=== PATIENT | male | born 1930 | race Caucasian/White ===

== ENCOUNTER 2017-08-07 02:11 | Inpatient (IN) | payer OTHER ==
[~2017-08-07] VITALS: Ht 160 cm; Wt 68.0 kg
[~2017-08-07 02:11] MED LIST: ACETAMINOPHN-T1 EACH PO; ADVAIR 250/501 DISK IH; AMLODIPINE-BEN1 EAC4 PO; APRESOLINE25 MG PO; ASPIR 8181 M1 PO; ASPIRIN81 M2 PO; AXID PO; AXID150 MG PO; AZOR 5/40 MG1 TABLET PO; CARBIDOPA/LEVO1 EACH PO; CIPRO500 MG PO; CIPROFLOXACIN500 M1 PO; Colace PO; DUONEB 2.5-0.5 M3 ML AEROSOL; DUONEB 2.5-0.5 M3 ML IH; Dulcolax PR; DuoNeb IH; HYDRALAZINE HCL25 MG PO; LEVAQUIN500 MG PO; LO-DOSE ASPIRIN81 M2 PO; LOPERAMIDE1 MG/5 ML PO; LOTREL 5/401 CAPSULE PO; METRONIDAZOLE500 MG PO; NORVASC5 MG PO; OMEPRAZOLE20 M2 PO; OMEPRAZOLE20 MG PO; PREDNISONE10 MG PO; PREDNISONE20 MG PO; PRILOSEC20 MG PO; REQUIP0.25 MG PO; SYMBICORT60 INHALA1 IH; TEKTURNA300 MG PO; TYLENOL REGULA325 MG PO; ULTRACET1 TABLET PO; UNKNOWN MED; VITAMIN D-3 401 EACH PO; VITAMIN D2400 UNIT PO; VITAMIN D31000 UNIT PO; VITAMIN D400 UNI1 PO; Vitamin D PO; WELCHOL625 MG PO
[2017-08-07 02:50] LABS: EOSINOPHIL (%) 1.2 % (0-5); EOSINOPHIL COUNT 0.1 K/uL (0-0.3); HEMATOCRIT 31.9 % (38.0-50.0); IMMATURE GRANULOCYTE (%) 0.9 % (0.0-0.7); IMMATURE GRANULOCYTE COUNT 0.1 K/uL; INSTRUMENT ABS NEUTROPHIL CT 4.5 K/uL; LYMPHOCYTE COUNT 1.1 K/uL (1.0-2.8); MCH 28.8 PG (29.0-34.0); MCHC 30.4 G/DL (30.0-36.0); MCV 94.7 FL (86-99); MEAN PLAT.VOLUME 8.7 uM^3 (9.0-12.4); MONOCYTE (%) 12.4 % (3-12); MONOCYTE COUNT 0.8 K/uL (0-0.8); NEUTROPHIL (%) 68.4 % (45-76); NEUTROPHIL COUNT 4.5 K/uL (1.8-6.4); PLATELET COUNT 256 K/uL (156-360); RBC DIS.WIDTH-CV 15.6 % (11.8-14.6); RBC DIS.WIDTH-SD 53.6 % (39-53); RED BLOOD COUNT 3.37 M/uL (4.00-5.50); WHITE BLOOD COUNT 6.6 K/uL (4.1-10.2)
[2017-08-07 03:08] LABS: CHLORIDE 112 mEq/L (99-109); POTASSIUM 5.1 mEq/L (3.7-5.4); SODIUM 141 mEq/L (136-147)
[2017-08-07 03:10] LABS: GLUCOSE 87 mg/dL (70-99)
[2017-08-07 03:11] LABS: ANION GAP 9 MEQ/L (2-14)
[2017-08-07 03:12] LABS: TOTAL BILIRUBIN 0.2 mg/dL (0.0-1.0)
[2017-08-07 03:13] LABS: ALKALINE PHOSPHATASE 72 IU/L (3-129)
[2017-08-07 03:14] LABS: GFR ESTIMATE (CALCULATED) 51 mL/min/
[2017-08-07 03:15] LABS: UREA NITROGEN (BUN) 45 mg/dL (9-23)
[2017-08-07 03:28] LABS: TROP-I INTERPRETATION NEGATIVE; TROPONIN-I 0.01 ng/mL (0.0-0.30)
[2017-08-07] MEDS ORDERED: ADVAIR 250/501 DISK IH (09:23)
[2017-08-07 14:52] VITALS: BP 165/79
[2017-08-07 23:20] VITALS: BP 138/78
[2017-08-08 06:06] LABS: MCH 29.6 PG (29.0-34.0); MCHC 31.7 G/DL (30.0-36.0); MCV 93.5 FL (86-99); MEAN PLAT.VOLUME 9.4 uM^3 (9.0-12.4); PLATELET COUNT 272 K/uL (156-360); RBC DIS.WIDTH-CV 15.8 % (11.8-14.6); RED BLOOD COUNT 3.21 M/uL (4.00-5.50); WHITE BLOOD COUNT 7.5 K/uL (4.1-10.2)
[2017-08-08 06:37] LABS: ALKALINE PHOSPHATASE 58 IU/L (3-129); ANION GAP 8 MEQ/L (2-14); CHLORIDE 111 MEQ/L (99-109); GFR ESTIMATE (CALCULATED) 51 mL/min/; POTASSIUM 5.5 MEQ/L (3.7-5.4); SAMPLE HEMOLYSIS CHECK 0; SAMPLE ICTERIC CHECK 0; SAMPLE LIPEMIA CHECK 0; SODIUM 139 MEQ/L (136-147); TOTAL BILIRUBIN 0.4 MG/DL (0.0-1.0); UREA NITROGEN (BUN) 40 mg/dL (9-23)
[2017-08-08 06:44] LABS: GLUCOSE 131 mg/dL (70-99)
[2017-08-08 09:00] VITALS: BP 137/80
[2017-08-08 16:31] VITALS: BP 137/58
[2017-08-08 20:20] VITALS: BP 103/54
[2017-08-09 00:38] VITALS: BP 123/64
[2017-08-09 04:11] VITALS: BP 134/70
[2017-08-09 06:36] LABS: EOSINOPHIL (%) 0 % (0-5); HEMATOCRIT 29.4 % (38.0-50.0); IMMATURE GRANULOCYTE (%) 1.2 % (0.0-0.7); IMMATURE GRANULOCYTE COUNT 0.1 K/uL; INSTRUMENT ABS NEUTROPHIL CT 5.7 K/uL; LYMPHOCYTE COUNT 0.5 K/uL (1.0-2.8); MCH 28.8 PG (29.0-34.0); MCHC 31.3 G/DL (30.0-36.0); MCV 92.2 FL (86-99); MEAN PLAT.VOLUME 9.1 uM^3 (9.0-12.4); MONOCYTE (%) 5.3 % (3-12); MONOCYTE COUNT 0.4 K/uL (0-0.8); NEUTROPHIL (%) 85.9 % (45-76); NEUTROPHIL COUNT 5.7 K/uL (1.8-6.4); PLATELET COUNT 265 K/uL (156-360); RBC DIS.WIDTH-CV 15.4 % (11.8-14.6); RBC DIS.WIDTH-SD 51.8 % (39-53); RED BLOOD COUNT 3.19 M/uL (4.00-5.50); WHITE BLOOD COUNT 6.6 K/uL (4.1-10.2)
[2017-08-09 06:58] LABS: ANION GAP 9 MEQ/L (2-14); CHLORIDE 108 MEQ/L (99-109); GFR ESTIMATE (CALCULATED) 47 mL/min/; GLUCOSE 128 mg/dL (70-99); POTASSIUM 5.2 MEQ/L (3.7-5.4); SAMPLE HEMOLYSIS CHECK 0; SAMPLE ICTERIC CHECK 0; SAMPLE LIPEMIA CHECK 0; SODIUM 137 MEQ/L (136-147); UREA NITROGEN (BUN) 46 mg/dL (9-23)
[2017-08-09 07:22] VITALS: BP 145/70
[2017-08-09 12:10] VITALS: BP 134/65
[2017-08-09 15:25] VITALS: BP 134/71
[2017-08-10 00:48] VITALS: BP 133/62
[2017-08-10 06:39] LABS: EOSINOPHIL (%) 0 % (0-5); HEMATOCRIT 30.2 % (38.0-50.0); IMMATURE GRANULOCYTE (%) 2.6 % (0.0-0.7); IMMATURE GRANULOCYTE COUNT 0.2 K/uL; INSTRUMENT ABS NEUTROPHIL CT 6.8 K/uL; LYMPHOCYTE COUNT 0.4 K/uL (1.0-2.8); MCH 29.8 PG (29.0-34.0); MCHC 32.1 G/DL (30.0-36.0); MCV 92.6 FL (86-99); MEAN PLAT.VOLUME 9.4 uM^3 (9.0-12.4); MONOCYTE (%) 7.4 % (3-12); MONOCYTE COUNT 0.6 K/uL (0-0.8); NEUTROPHIL (%) 84.6 % (45-76); NEUTROPHIL COUNT 6.8 K/uL (1.8-6.4); PLATELET COUNT 278 K/uL (156-360); RBC DIS.WIDTH-CV 15.4 % (11.8-14.6); RBC DIS.WIDTH-SD 52.2 % (39-53); RED BLOOD COUNT 3.26 M/uL (4.00-5.50)
[2017-08-10 07:07] LABS: GFR ESTIMATE (CALCULATED) 44 mL/min/; GLUCOSE 110 mg/dL (70-99); POTASSIUM 5.2 MEQ/L (3.7-5.4); SODIUM 138 MEQ/L (136-147); UREA NITROGEN (BUN) 56 mg/dL (9-23)
[2017-08-10 07:08] LABS: ANION GAP 10 MEQ/L (2-14); CHLORIDE 109 MEQ/L (99-109); SAMPLE HEMOLYSIS CHECK 0; SAMPLE ICTERIC CHECK 0; SAMPLE LIPEMIA CHECK 0
[2017-08-10 07:36] VITALS: BP 134/78
[2017-08-10 15:17] VITALS: BP 108/55
[2017-08-10 15:32] VITALS: BP 120/58
[2017-08-10 19:50] VITALS: BP 127/70
[2017-08-10 23:57] VITALS: BP 117/57
[2017-08-11 06:46] LABS: EOSINOPHIL (%) 0 % (0-5); HEMATOCRIT 30.2 % (38.0-50.0); IMMATURE GRANULOCYTE (%) 2.9 % (0.0-0.7); IMMATURE GRANULOCYTE COUNT 0.2 K/uL; INSTRUMENT ABS NEUTROPHIL CT 6.4 K/uL; LYMPHOCYTE COUNT 0.3 K/uL (1.0-2.8); MCH 30.2 PG (29.0-34.0); MCHC 32.5 G/DL (30.0-36.0); MCV 93.2 FL (86-99); MEAN PLAT.VOLUME 9.4 uM^3 (9.0-12.4); MONOCYTE (%) 5.9 % (3-12); MONOCYTE COUNT 0.4 K/uL (0-0.8); NEUTROPHIL (%) 86.7 % (45-76); NEUTROPHIL COUNT 6.4 K/uL (1.8-6.4); PLATELET COUNT 258 K/uL (156-360); RBC DIS.WIDTH-CV 15.4 % (11.8-14.6); RBC DIS.WIDTH-SD 52.7 % (39-53); RED BLOOD COUNT 3.24 M/uL (4.00-5.50); WHITE BLOOD COUNT 7.3 K/uL (4.1-10.2)
[2017-08-11 07:21] LABS: ANION GAP 10 MEQ/L (2-14); CHLORIDE 109 MEQ/L (99-109); GFR ESTIMATE (CALCULATED) 36 mL/min/; GLUCOSE 111 mg/dL (70-99); POTASSIUM 5.7 MEQ/L (3.7-5.4); SAMPLE HEMOLYSIS CHECK 1; SAMPLE ICTERIC CHECK 0; SAMPLE LIPEMIA CHECK 0; SODIUM 137 MEQ/L (136-147); UREA NITROGEN (BUN) 68 mg/dL (9-23)
[2017-08-11 08:08] VITALS: BP 104/52
[2017-08-11 08:26] VITALS: BP 122/61
[2017-08-11 15:32] VITALS: BP 129/55
[2017-08-11 23:41] VITALS: BP 127/63
[2017-08-12 06:27] LABS: EOSINOPHIL (%) 0 % (0-5); IMMATURE GRANULOCYTE (%) 2.1 % (0.0-0.7); IMMATURE GRANULOCYTE COUNT 0.2 K/uL; INSTRUMENT ABS NEUTROPHIL CT 7.6 K/uL; LYMPHOCYTE COUNT 0.6 K/uL (1.0-2.8); MCH 28.6 PG (29.0-34.0); MCHC 30.3 G/DL (30.0-36.0); MCV 94.3 FL (86-99); MEAN PLAT.VOLUME 9.2 uM^3 (9.0-12.4); MONOCYTE (%) 14.8 % (3-12); MONOCYTE COUNT 1.5 K/uL (0-0.8); NEUTROPHIL (%) 76.4 % (45-76); NEUTROPHIL COUNT 7.6 K/uL (1.8-6.4); PLATELET COUNT 282 K/uL (156-360); RBC DIS.WIDTH-CV 15.4 % (11.8-14.6); RBC DIS.WIDTH-SD 53.2 % (39-53); WHITE BLOOD COUNT 9.9 K/uL (4.1-10.2)
[2017-08-12 07:01] LABS: ANION GAP 9 MEQ/L (2-14); CHLORIDE 110 MEQ/L (99-109); GFR ESTIMATE (CALCULATED) 36 mL/min/; POTASSIUM 4.8 MEQ/L (3.7-5.4); SAMPLE HEMOLYSIS CHECK 0; SAMPLE ICTERIC CHECK 0; SAMPLE LIPEMIA CHECK 0; SODIUM 142 MEQ/L (136-147); UREA NITROGEN (BUN) 73 mg/dL (9-23)
[2017-08-12 07:08] LABS: GLUCOSE 80 mg/dL (70-99)
[2017-08-12 07:52] VITALS: BP 120/58
[2017-08-12] MEDS ORDERED: CLEOCIN300 MG PO (09:00)
[2017-08-12] MEDS ORDERED: DELTASONE20 M1 PO (09:01)
== END 2017-08-12 12:17 | DRG 153 ==
LOC: EME 02:11 → EDOF 11:00 → 5EAST 11:00 → ENRESERV 11:17 → 5EAST 14:22
PROVIDERS: Emergency Medicine; Family Medicine
DX: J39.0 Retropharyngeal and parapharyngeal abscess (principal); J44.1 Chronic obstructive pulmonary disease with (acute) exacerbation; R13.12 Dysphagia, oropharyngeal phase; E87.5 Hyperkalemia; I12.9 Hypertensive chronic kidney disease with stage 1 through stage 4 chronic kidney disease, or unspecified chronic kidney disease; N18.2 Chronic kidney disease, stage 2 (mild); D50.9 Iron deficiency anemia, unspecified; G20 Parkinson's disease; E55.9 Vitamin D deficiency, unspecified; E78.1 Pure hyperglyceridemia; E78.5 Hyperlipidemia, unspecified; K21.9 Gastro-esophageal reflux disease without esophagitis; M19.90 Unspecified osteoarthritis, unspecified site; E66.9 Obesity, unspecified; G25.81 Restless legs syndrome; Z96.651 Presence of right artificial knee joint; Z85.46 Personal history of malignant neoplasm of prostate
CPT/HCPCS: 70360; 70490; 70491; 71020; 71250; 80048; 80053; 83880; 84484; 85025; 85027; 87040; 90686; 92610 GN; 93005; 94640; 94640 76; 97530 GO; 99202; 99281; 99285; C9113; J0696; J1100; J2543; J2930; J7040; J7050; J7512; J7644

== ENCOUNTER 2018-02-06 22:29 | Inpatient (IN) | payer OTHER ==
[~2018-02-06] VITALS: Ht 160 cm; Wt 76.5 kg
[~2018-02-06 22:29] MED LIST changes: +CLEOCIN300 MG PO; +DELTASONE20 M1 PO
[2018-02-06 23:05] LABS: HEMATOCRIT 29.6 % (38.0-50.0); HEMOGLOBIN 8.9 G/DL (12.5-16.6); MCHC 30.1 G/DL (30.0-36.0); MCV 86.5 FL (86-99); NRBC (%) 0.2 /100 WBC (0-0); PLATELET COUNT 364 K/uL (156-360); RBC DIS.WIDTH-CV 17.1 % (11.8-14.6); RBC DIS.WIDTH-SD 53.4 % (39-53); RED BLOOD COUNT 3.42 M/uL (4.00-5.50); WHITE BLOOD COUNT 9.6 K/uL (4.1-10.2)
[2018-02-06 23:13] LABS: CHLORIDE 107 mEq/L (99-109); SODIUM 141 mEq/L (136-147)
[2018-02-06 23:15] LABS: GLUCOSE 118 mg/dL (70-99)
[2018-02-06 23:18] LABS: CREATININE 1.9 mg/dL (0.6-1.3); GFR ESTIMATE (CALCULATED) 36 mL/min/ (58.99-99999)
[2018-02-06 23:19] LABS: UREA NITROGEN (BUN) 83 mg/dL (9-23)
[2018-02-06 23:21] LABS: POTASSIUM 6.7 mEq/L (3.7-5.4)
[2018-02-06 23:25] LABS: TROP-I INTERPRETATION NEGATIVE; TROPONIN-I 0.02 ng/mL (0.0-0.30)
[2018-02-07 00:58] LABS: CHLORIDE 108 mEq/L (99-109); SODIUM 141 mEq/L (136-147)
[2018-02-07 01:00] LABS: GLUCOSE 114 mg/dL (70-99)
[2018-02-07] MEDS ORDERED: PEPCID20 MG PO (01:01)
[2018-02-07] MEDS ORDERED: CLARITIN,ALAVAR10 MG PO (01:02)
[2018-02-07] MEDS ORDERED: DELTASONE20 M1 PO (01:02)
[2018-02-07 01:04] LABS: CREATININE 1.9 mg/dL (0.6-1.3); GFR ESTIMATE (CALCULATED) 36 mL/min/ (58.99-99999)
[2018-02-07 01:05] LABS: POTASSIUM 6.9 mEq/L (3.7-5.4); UREA NITROGEN (BUN) 83 mg/dL (9-23)
[2018-02-07 07:19] LABS: HEMOGLOBIN 8.5 G/DL (12.5-16.6); MCH 26.3 PG (29.0-34.0); MCHC 30.4 G/DL (30.0-36.0); MCV 86.7 FL (86-99); NRBC (%) 0.2 /100 WBC (0-0); PLATELET COUNT 301 K/uL (156-360); RBC DIS.WIDTH-CV 17.2 % (11.8-14.6); RBC DIS.WIDTH-SD 53.2 % (39-53); RED BLOOD COUNT 3.23 M/uL (4.00-5.50); WHITE BLOOD COUNT 8.2 K/uL (4.1-10.2)
[2018-02-07 07:28] LABS: CHLORIDE 107 mEq/L (99-109); SODIUM 141 mEq/L (136-147)
[2018-02-07 07:30] LABS: GLUCOSE 94 mg/dL (70-99)
[2018-02-07 07:34] LABS: CREATININE 1.9 mg/dL (0.6-1.3); GFR ESTIMATE (CALCULATED) 36 mL/min/ (58.99-99999)
[2018-02-07 07:35] LABS: UREA NITROGEN (BUN) 82 mg/dL (9-23)
[2018-02-07 07:40] LABS: TROP-I INTERPRETATION NEGATIVE; TROPONIN-I < 0.01 ng/mL (0.0-0.30)
[2018-02-07 15:13] LABS: TROP-I INTERPRETATION NEGATIVE; TROPONIN-I 0.02 ng/mL (0.0-0.30)
[2018-02-07 18:58] VITALS: BP 114/66
[2018-02-07 23:54] VITALS: BP 117/60
[2018-02-08 04:37] VITALS: BP 138/69
[2018-02-08 05:25] LABS: BASOPHIL (%) 0.1 % (0-1); EOSINOPHIL (%) 0 % (0-5); HEMOGLOBIN 8.4 G/DL (12.5-16.6); IMMATURE GRANULOCYTE (%) 1.2 % (0.0-0.7); LYMPHOCYTE (%) 4.3 % (15-42); LYMPHOCYTE COUNT 0.4 K/uL (1.0-2.8); MCH 25.8 PG (29.0-34.0); MCV 85.9 FL (86-99); MONOCYTE (%) 8.2 % (3-12); MONOCYTE COUNT 0.8 K/uL (0-0.8); NEUTROPHIL (%) 86.2 % (45-76); NEUTROPHIL COUNT 8.2 K/uL (1.8-6.4); NRBC (%) 0.4 /100 WBC (0-0); PLATELET COUNT 322 K/uL (156-360); RBC DIS.WIDTH-CV 17.3 % (11.8-14.6); RBC DIS.WIDTH-SD 53.6 % (39-53); RED BLOOD COUNT 3.26 M/uL (4.00-5.50); WHITE BLOOD COUNT 9.5 K/uL (4.1-10.2)
[2018-02-08 05:53] LABS: CHLORIDE 103 MEQ/L (99-109); GFR ESTIMATE (CALCULATED) 34 mL/min/ (58.99-99999); GLUCOSE 110 mg/dL (70-99); SODIUM 143 MEQ/L (136-147); UREA NITROGEN (BUN) 72 mg/dL (9-23)
[2018-02-08 05:54] LABS: POTASSIUM 4.7 MEQ/L (3.7-5.4)
[2018-02-08 09:00] VITALS: BP 152/68
[2018-02-08 12:00] VITALS: BP 107/58
[2018-02-08 23:55] VITALS: BP 116/56
[2018-02-09] VITALS (7 sets, daily range): BP systolic 100–127; BP diastolic 56–65
[2018-02-09 05:43] LABS: BASOPHIL (%) 0 % (0-1); EOSINOPHIL (%) 0 % (0-5); HEMATOCRIT 27.3 % (38.0-50.0); HEMOGLOBIN 8.2 G/DL (12.5-16.6); LYMPHOCYTE (%) 7.2 % (15-42); LYMPHOCYTE COUNT 0.6 K/uL (1.0-2.8); MCH 25.6 PG (29.0-34.0); MCV 85.3 FL (86-99); MONOCYTE (%) 10.9 % (3-12); MONOCYTE COUNT 0.9 K/uL (0-0.8); NEUTROPHIL (%) 79.9 % (45-76); NEUTROPHIL COUNT 6.3 K/uL (1.8-6.4); RBC DIS.WIDTH-CV 17.2 % (11.8-14.6); RBC DIS.WIDTH-SD 52.8 % (39-53); WHITE BLOOD COUNT 7.9 K/uL (4.1-10.2)
[2018-02-09 05:48] LABS: CHLORIDE 102 MEQ/L (99-109); CREATININE 1.8 MG/DL (0.6-1.3); GFR ESTIMATE (CALCULATED) 38 mL/min/ (58.99-99999); GLUCOSE 107 mg/dL (70-99); POTASSIUM 4.5 MEQ/L (3.7-5.4); SODIUM 141 MEQ/L (136-147); UREA NITROGEN (BUN) 70 mg/dL (9-23)
[2018-02-09 06:01] LABS: PLAT.SUFFICIENCY ADEQUATE; PLATELET COUNT 290 K/uL (156-360)
[2018-02-10 02:40] VITALS: BP 140/64
[2018-02-10 06:42] LABS: BASOPHIL (%) 0.1 % (0-1); EOSINOPHIL (%) 0 % (0-5); HEMATOCRIT 28.9 % (38.0-50.0); HEMOGLOBIN 8.7 G/DL (12.5-16.6); LYMPHOCYTE COUNT 0.8 K/uL (1.0-2.8); MCH 25.6 PG (29.0-34.0); MCHC 30.1 G/DL (30.0-36.0); MONOCYTE (%) 12.5 % (3-12); MONOCYTE COUNT 1.2 K/uL (0-0.8); NEUTROPHIL (%) 78.4 % (45-76); NEUTROPHIL COUNT 7.4 K/uL (1.8-6.4); PLATELET COUNT 262 K/uL (156-360); RBC DIS.WIDTH-CV 17.2 % (11.8-14.6); RBC DIS.WIDTH-SD 52.5 % (39-53); WHITE BLOOD COUNT 9.4 K/uL (4.1-10.2)
[2018-02-10 07:29] LABS: CHLORIDE 99 MEQ/L (99-109); GFR ESTIMATE (CALCULATED) 34 mL/min/ (58.99-99999); GLUCOSE 92 mg/dL (70-99); POTASSIUM 4.3 MEQ/L (3.7-5.4); SODIUM 141 MEQ/L (136-147); UREA NITROGEN (BUN) 70 mg/dL (9-23)
[2018-02-10 07:44] VITALS: BP 129/72
[2018-02-10 11:20] VITALS: BP 107/55
[2018-02-10 15:33] VITALS: BP 115/55
[2018-02-10] MEDS ORDERED: CEFDINIR300 MG PO (15:50)
[2018-02-10] MEDS ORDERED: PREDNISONE20 MG PO (15:51)
[2018-02-10] MEDS ORDERED: LASIX20 MG PO (15:52)
[2018-02-10 19:47] VITALS: BP 130/63
== END 2018-02-10 20:23 | DRG 191 ==
LOC: EME → EDBD 22:29 → EDOF 02-07 01:00 → 4EAST 02-07 01:00 → ENRESERV 02-07 01:21 → 4EAST 02-07 17:58 → ENPENDDIS 02-10 → 4EAST 02-10 20:23
PROVIDERS: Emergency Medicine; Family Medicine
DX: J44.1 Chronic obstructive pulmonary disease with (acute) exacerbation (principal); N17.9 Acute kidney failure, unspecified; I50.9 Heart failure, unspecified; D64.9 Anemia, unspecified; E55.9 Vitamin D deficiency, unspecified; I13.0 Hypertensive heart and chronic kidney disease with heart failure and stage 1 through stage 4 chronic kidney disease, or unspecified chronic kidney disease; G20 Parkinson's disease; E87.5 Hyperkalemia; E66.9 Obesity, unspecified; R53.1 Weakness; R09.02 Hypoxemia; E78.5 Hyperlipidemia, unspecified; K21.9 Gastro-esophageal reflux disease without esophagitis; Z96.651 Presence of right artificial knee joint; N18.3 Chronic kidney disease, stage 3 (moderate); Z79.82 Long term (current) use of aspirin; Z79.899 Other long term (current) drug therapy; Z68.31 Body mass index [BMI] 31.0-31.9, adult; Z85.46 Personal history of malignant neoplasm of prostate
CPT/HCPCS: 71046; 80048; 80048 91; 82948; 83880; 84484; 85025; 85027; 93005; 93306; 94640; 94640 76; 94760; 94799; 97530 GP; 99202; 99281; 99285; J0610; J1644; J1815; J1940; J2930; J7030; J7050; J7512; J7644

== ENCOUNTER 2018-03-03 17:14 | Inpatient (IN) | payer OTHER ==
[~2018-03-03] VITALS: Ht 160 cm; Wt 76.6 kg
[~2018-03-03 17:14] MED LIST changes: +CEFDINIR300 MG PO; +CLARITIN,ALAVAR10 MG PO; +LASIX20 MG PO; +PEPCID20 MG PO
[2018-03-03 18:31] LABS: ALBUMIN 2.9 g/dL (3.2-4.8); CHLORIDE 105 mEq/L (99-109); POTASSIUM 5.9 mEq/L (3.7-5.4); SODIUM 138 mEq/L (136-147)
[2018-03-03 18:33] LABS: GLUCOSE 76 mg/dL (70-99)
[2018-03-03 18:35] LABS: TOTAL BILIRUBIN 0.5 mg/dL (0.0-1.0)
[2018-03-03 18:37] LABS: ALKALINE PHOSPHATASE 167 IU/L (3-129); CREATININE 1.5 mg/dL (0.6-1.3); GFR ESTIMATE (CALCULATED) 47 mL/min/ (58.99-99999)
[2018-03-03 18:39] LABS: AST (GOT) 33 IU/L (2-34)
[2018-03-03 18:40] LABS: ALT (GPT) 4 IU/L (3-49)
[2018-03-03 18:48] LABS: UREA NITROGEN (BUN) 43 mg/dL (9-23)
[2018-03-03 19:07] LABS: TROP-I INTERPRETATION NEGATIVE; TROPONIN-I 0.17 ng/mL (0.0-0.30)
[2018-03-03 19:43] LABS: HEMATOCRIT 28.5 % (38.0-50.0); HEMOGLOBIN 8.6 G/DL (12.5-16.6); MCH 26.1 PG (29.0-34.0); MCHC 30.2 G/DL (30.0-36.0); MCV 86.6 FL (86-99); RBC DIS.WIDTH-CV 20.2 % (11.8-14.6); RBC DIS.WIDTH-SD 62.9 % (39-53); RED BLOOD COUNT 3.29 M/uL (4.00-5.50); WHITE BLOOD COUNT 10.2 K/uL (4.1-10.2)
[2018-03-03 20:16] LABS: APPEARANCE CLEAR ((CLEAR)); BILIRUBIN NEGATIVE; BLOOD NEGATIVE; COLOR YELLOW ((YELLOW)); GLUCOSE (STRIP) NEGATIVE; KETONES NEGATIVE; LEUKOCYTES NEGATIVE; NITRITE NEGATIVE; PROTEIN (STRIP) NEGATIVE; SPECIFIC GRAVITY 1.016 (1.000-1.030); UCUL ADDED? NO
[2018-03-03 22:59] LABS: ANISOCYTOSIS 2+; BASOPH.STIPPLING 1+; EOSINOPHIL ABS CT 0; LYMPHOCYTES 5.2 % (15.0-45.0); MACROCYTES 1+; MONOCYTES 6.1 % (0-9.0); OVALOCYTES 1+; PLAT.SUFFICIENCY ADEQUATE; PLATELET CLUMPS PRESENT - PLATELET COUNT APPEARS ADQ.; POIKILOCYTOSIS 1+; POLYCHROMASIA 1+; SEG.NEUTROPHILS 75.7 % (46.0-76.0)
[2018-03-04] VITALS (8 sets, daily range): BP systolic 88–124; BP diastolic 52–74
[2018-03-04 01:24] LABS: CHLORIDE 105 mEq/L (99-109); POTASSIUM 5.6 mEq/L (3.7-5.4); SODIUM 135 mEq/L (136-147)
[2018-03-04 01:26] LABS: GLUCOSE 91 mg/dL (70-99)
[2018-03-04 01:30] LABS: CREATININE 1.5 mg/dL (0.6-1.3); GFR ESTIMATE (CALCULATED) 47 mL/min/ (58.99-99999)
[2018-03-04 01:31] LABS: TROP-I INTERPRETATION POSITIVE
[2018-03-04 01:31] LABS: UREA NITROGEN (BUN) 43 mg/dL (9-23)
[2018-03-04 01:34] LABS: TROPONIN-I 1.05 ng/mL (0.0-0.30)
[2018-03-04] MEDS ORDERED: MELATONIN1 MG PO (01:52)
[2018-03-04] MEDS ORDERED: REQUIP0.5 MG PO (01:55)
[2018-03-04] MEDS ORDERED: APRESOLINE25 MG PO (01:56)
[2018-03-04] MEDS ORDERED: IRON325 M1 PO (01:58)
[2018-03-04] MEDS ORDERED: TYLENOL REGULA325 MG PO (02:00)
[2018-03-04] MEDS ORDERED: BISAC-EVAC10 MG PR (02:02)
[2018-03-04] MEDS ORDERED: MUCINEX600 MG PO (02:03)
[2018-03-04] MEDS ORDERED: ULTRAM50 MG PO (02:04)
[2018-03-04] MEDS ORDERED: TUMS DUAL ACTI1 EACH PO (02:05)
[2018-03-04 07:15] LABS: HEMATOCRIT 29.1 % (38.0-50.0); HEMOGLOBIN 8.3 G/DL (12.5-16.6); MCH 25.4 PG (29.0-34.0); MCHC 28.5 G/DL (30.0-36.0); PLATELET COUNT 273 K/uL (156-360); RBC DIS.WIDTH-SD 65.4 % (39-53); RED BLOOD COUNT 3.27 M/uL (4.00-5.50); WHITE BLOOD COUNT 10.6 K/uL (4.1-10.2)
[2018-03-04 07:37] LABS: ABS NEUTROPHIL COUNT 8.5; ANISOCYTOSIS 1+; BAND NEUTROPHILS 29.6 % (0-8.0); EOSINOPHIL ABS CT 0; LYMPHOCYTES 7.8 % (15.0-45.0); MACROCYTES 1+; MICROCYTOSIS 1+; MONOCYTES 12.2 % (0-9.0)
[2018-03-04 07:38] LABS: TROP-I INTERPRETATION POSITIVE; TROPONIN-I 0.92 ng/mL (0.0-0.30)
[2018-03-04 07:40] LABS: SEG.NEUTROPHILS 50.4 % (46.0-76.0)
[2018-03-04 07:51] LABS: ALBUMIN 2.7 G/DL (3.2-4.8); ALKALINE PHOSPHATASE 123 IU/L (3-129); AST (GOT) 20 IU/L (2-34); CHLORIDE 105 MEQ/L (99-109); CREATININE 1.6 MG/DL (0.6-1.3); GFR ESTIMATE (CALCULATED) 44 mL/min/ (58.99-99999); GLUCOSE 83 mg/dL (70-99); POTASSIUM 5.3 MEQ/L (3.7-5.4); SODIUM 135 MEQ/L (136-147); TOTAL BILIRUBIN 0.3 MG/DL (0.0-1.0); TOTAL PROTEIN 4.2 G/DL (6.4-8.3); UREA NITROGEN (BUN) 42 mg/dL (9-23)
[2018-03-04 07:52] LABS: ALT (GPT) < 3 IU/L (3-49)
[2018-03-05] VITALS (16 sets, daily range): BP systolic 94–140; BP diastolic 58–95
[2018-03-05 06:32] LABS: CREATININE 1.7 MG/DL (0.6-1.3)
[2018-03-05 08:18] LABS: HEMATOCRIT 29.1 % (38.0-50.0); HEMOGLOBIN 8.3 G/DL (12.5-16.6); MCH 25.8 PG (29.0-34.0); MCHC 28.5 G/DL (30.0-36.0); MCV 90.4 FL (86-99); PLATELET COUNT 253 K/uL (156-360); RBC DIS.WIDTH-CV 19.7 % (11.8-14.6); RBC DIS.WIDTH-SD 65.2 % (39-53); RED BLOOD COUNT 3.22 M/uL (4.00-5.50); WHITE BLOOD COUNT 6.7 K/uL (4.1-10.2)
[2018-03-05 08:50] LABS: CHLORIDE 106 MEQ/L (99-109); CREATININE 1.7 MG/DL (0.6-1.3); GFR ESTIMATE (CALCULATED) 41 mL/min/ (58.99-99999); GLUCOSE 73 mg/dL (70-99); POTASSIUM 4.7 MEQ/L (3.7-5.4); SODIUM 139 MEQ/L (136-147); UREA NITROGEN (BUN) 41 mg/dL (9-23)
[2018-03-05 09:56] LABS: BASE EXCESS -2.8 mEq/L (-3 to +3); BICARBONATE 26.3 mEq/L (22-26); CARBOXY HGB 0.9 % (0-5); METHEMOGLOBIN 1.6 % (0-1.5); PCO2 72 mm Hg (35-45); PO2 266 mm Hg (80-100); pH 7.17 (7.35-7.45)
[2018-03-05 09:57] LABS: DEVICE HIGH FLOW NC; O2 FLOW 15 L/MIN; SITE LR
[2018-03-05 09:59] LABS: COMMENTS - BLOOD GASES NAC+
[2018-03-05 14:00] LABS: BASE EXCESS -0.4 mEq/L (-3 to +3); BICARBONATE 25.4 mEq/L (22-26); CARBOXY HGB 1.1 % (0-5); METHEMOGLOBIN 1.6 % (0-1.5)
[2018-03-05 14:01] LABS: COMMENTS - BLOOD GASES A+C+; PCO2 46 mm Hg (35-45); PO2 63 mm Hg (80-100); SITE RRAD; pH 7.35 (7.35-7.45)
[2018-03-05 14:03] LABS: DEVICE VENT; FI02 21 %; MODE SPONT; TOTAL RESP RATE 30 resp/min
[2018-03-05 14:04] LABS: PEEP 2 CM/H20; PRES. SUPPORT 10 CM/H2O
[2018-03-06] VITALS (24 sets, daily range): BP systolic 99–135; BP diastolic 57–84
[2018-03-06 05:19] LABS: BASOPHIL (%) 0 % (0-1); EOSINOPHIL (%) 0 % (0-5); HEMATOCRIT 26.1 % (38.0-50.0); HEMOGLOBIN 8.1 G/DL (12.5-16.6); IMMATURE GRANULOCYTE (%) 1.3 % (0.0-0.7); LYMPHOCYTE (%) 6.5 % (15-42); LYMPHOCYTE COUNT 0.4 K/uL (1.0-2.8); MCV 83.7 FL (86-99); MONOCYTE (%) 6.7 % (3-12); MONOCYTE COUNT 0.4 K/uL (0-0.8); NEUTROPHIL (%) 85.5 % (45-76); NEUTROPHIL COUNT 4.7 K/uL (1.8-6.4); NRBC (%) 0.4 /100 WBC (0-0); PLATELET COUNT 307 K/uL (156-360); RBC DIS.WIDTH-CV 19.6 % (11.8-14.6); RED BLOOD COUNT 3.12 M/uL (4.00-5.50); WHITE BLOOD COUNT 5.5 K/uL (4.1-10.2)
[2018-03-06 05:27] LABS: CHLORIDE 106 mEq/L (99-109); POTASSIUM 4.6 mEq/L (3.7-5.4); SODIUM 140 mEq/L (136-147)
[2018-03-06 05:28] LABS: MAGNESIUM 1.7 mg/dL (1.3-2.7)
[2018-03-06 05:30] LABS: GLUCOSE 115 mg/dL (70-99)
[2018-03-06 05:33] LABS: CREATININE 1.6 mg/dL (0.6-1.3); GFR ESTIMATE (CALCULATED) 44 mL/min/ (58.99-99999); PHOSPHORUS 3.3 mg/dL (2.5-4.9)
[2018-03-06 05:34] LABS: UREA NITROGEN (BUN) 40 mg/dL (9-23)
[2018-03-06 06:45] LABS: TRIGLYCERIDES 80 MG/DL (Normal: <150)
[2018-03-07] VITALS (25 sets, daily range): BP systolic 119–158; BP diastolic 61–114
[2018-03-07 04:48] LABS: BASOPHIL (%) 0.2 % (0-1); EOSINOPHIL (%) 0 % (0-5); HEMATOCRIT 28.7 % (38.0-50.0); HEMOGLOBIN 9.1 G/DL (12.5-16.6); IMMATURE GRANULOCYTE (%) 1.6 % (0.0-0.7); LYMPHOCYTE (%) 7.2 % (15-42); LYMPHOCYTE COUNT 0.4 K/uL (1.0-2.8); MCH 25.7 PG (29.0-34.0); MCHC 31.7 G/DL (30.0-36.0); MCV 81.1 FL (86-99); MONOCYTE (%) 6.6 % (3-12); MONOCYTE COUNT 0.4 K/uL (0-0.8); NEUTROPHIL (%) 84.4 % (45-76); NEUTROPHIL COUNT 5.1 K/uL (1.8-6.4); PLATELET COUNT 286 K/uL (156-360); RBC DIS.WIDTH-CV 19.7 % (11.8-14.6); RBC DIS.WIDTH-SD 58.3 % (39-53); RED BLOOD COUNT 3.54 M/uL (4.00-5.50); WHITE BLOOD COUNT 6.1 K/uL (4.1-10.2)
[2018-03-07 04:58] LABS: CHLORIDE 106 mEq/L (99-109); POTASSIUM 4.6 mEq/L (3.7-5.4); SODIUM 140 mEq/L (136-147)
[2018-03-07 04:59] LABS: MAGNESIUM 1.8 mg/dL (1.3-2.7)
[2018-03-07 05:00] LABS: GLUCOSE 143 mg/dL (70-99)
[2018-03-07 05:03] LABS: PHOSPHORUS 3.5 mg/dL (2.5-4.9)
[2018-03-07 05:04] LABS: CREATININE 1.6 mg/dL (0.6-1.3); GFR ESTIMATE (CALCULATED) 44 mL/min/ (58.99-99999)
[2018-03-07 05:05] LABS: UREA NITROGEN (BUN) 45 mg/dL (9-23)
[2018-03-08] VITALS (9 sets, daily range): BP systolic 119–166; BP diastolic 67–100
[2018-03-08 04:36] LABS: BASOPHIL (%) 0 % (0-1); EOSINOPHIL (%) 0 % (0-5); HEMATOCRIT 29.4 % (38.0-50.0); HEMOGLOBIN 9.3 G/DL (12.5-16.6); IMMATURE GRANULOCYTE (%) 3.6 % (0.0-0.7); LYMPHOCYTE (%) 6.1 % (15-42); LYMPHOCYTE COUNT 0.4 K/uL (1.0-2.8); MCH 26.1 PG (29.0-34.0); MCHC 31.6 G/DL (30.0-36.0); MCV 82.4 FL (86-99); MONOCYTE (%) 8.7 % (3-12); MONOCYTE COUNT 0.6 K/uL (0-0.8); NEUTROPHIL (%) 81.6 % (45-76); NEUTROPHIL COUNT 5.7 K/uL (1.8-6.4); PLATELET COUNT 334 K/uL (156-360); RBC DIS.WIDTH-CV 19.8 % (11.8-14.6); RED BLOOD COUNT 3.57 M/uL (4.00-5.50); WHITE BLOOD COUNT 6.9 K/uL (4.1-10.2)
[2018-03-08 05:03] LABS: CHLORIDE 109 MEQ/L (99-109); CREATININE 1.5 MG/DL (0.6-1.3); GFR ESTIMATE (CALCULATED) 47 mL/min/ (58.99-99999); GLUCOSE 125 mg/dL (70-99); PHOSPHORUS 3.6 mg/dL (2.5-4.9); POTASSIUM 4.4 MEQ/L (3.7-5.4); SODIUM 142 MEQ/L (136-147); UREA NITROGEN (BUN) 44 mg/dL (9-23)
[2018-03-09] VITALS: BP 125/75
[2018-03-09 04:00] VITALS: BP 120/73
[2018-03-09 06:04] LABS: CHLORIDE 113 MEQ/L (99-109); CREATININE 1.8 MG/DL (0.6-1.3); GFR ESTIMATE (CALCULATED) 38 mL/min/ (58.99-99999); GLUCOSE 123 mg/dL (70-99); MAGNESIUM 1.8 mg/dl (1.3-2.7); PHOSPHORUS 3.6 mg/dL (2.5-4.9); POTASSIUM 4.9 MEQ/L (3.7-5.4); SODIUM 142 MEQ/L (136-147); UREA NITROGEN (BUN) 46 mg/dL (9-23)
[2018-03-09 07:30] LABS: HEMATOCRIT 30.7 % (38.0-50.0); HEMOGLOBIN 9.4 G/DL (12.5-16.6); MCH 25.6 PG (29.0-34.0); MCHC 30.6 G/DL (30.0-36.0); MCV 83.7 FL (86-99); RBC DIS.WIDTH-CV 19.9 % (11.8-14.6); RBC DIS.WIDTH-SD 60.8 % (39-53); RED BLOOD COUNT 3.67 M/uL (4.00-5.50); WHITE BLOOD COUNT 9.7 K/uL (4.1-10.2)
[2018-03-09 08:16] LABS: ABS NEUTROPHIL COUNT 7.4; ANISOCYTOSIS 2+; EOSINOPHIL ABS CT 0; HEMATOLOGY COMMENT 1 SMEAR COMPATIBLE; OVALOCYTES 1+; PLAT.SUFFICIENCY ADEQUATE; PLATELET COUNT 345 K/uL (156-360)
[2018-03-09 08:36] VITALS: BP 150/86
[2018-03-09 10:49] LABS: ALBUMIN 2.9 G/DL (3.2-4.8); ALT (GPT) 3 IU/L (3-49); CHLORIDE 107 MEQ/L (99-109); CREATININE 1.8 MG/DL (0.6-1.3); DIRECT BILIRUBIN 0.1 mg/dL (0.0-0.3); GFR ESTIMATE (CALCULATED) 38 mL/min/ (58.99-99999); GLUCOSE 164 mg/dL (70-99); PHOSPHORUS 3.8 mg/dL (2.5-4.9); POTASSIUM 4.8 MEQ/L (3.7-5.4); SODIUM 142 MEQ/L (136-147); TOTAL BILIRUBIN 0.3 MG/DL (0.0-1.0); UREA NITROGEN (BUN) 43 mg/dL (9-23)
[2018-03-09 10:51] LABS: ALKALINE PHOSPHATASE 66 IU/L (3-129); AST (GOT) 10 IU/L (2-34)
[2018-03-09 13:18] VITALS: BP 137/65
[2018-03-09 16:03] VITALS: BP 138/83
[2018-03-09 19:30] VITALS: BP 133/79
[2018-03-10 00:30] VITALS: BP 146/81
[2018-03-10 04:33] VITALS: BP 138/80
[2018-03-10 05:19] LABS: HEMATOCRIT 31.3 % (38.0-50.0); HEMOGLOBIN 9.4 G/DL (12.5-16.6); MCH 25.8 PG (29.0-34.0); PLATELET COUNT 335 K/uL (156-360); RBC DIS.WIDTH-CV 19.9 % (11.8-14.6); RED BLOOD COUNT 3.64 M/uL (4.00-5.50); WHITE BLOOD COUNT 11.4 K/uL (4.1-10.2)
[2018-03-10 05:57] LABS: CHLORIDE 107 MEQ/L (99-109); CREATININE 1.8 MG/DL (0.6-1.3); GFR ESTIMATE (CALCULATED) 38 mL/min/ (58.99-99999); MAGNESIUM 1.9 mg/dl (1.3-2.7); PHOSPHORUS 3.3 mg/dL (2.5-4.9); POTASSIUM 5.1 MEQ/L (3.7-5.4); SODIUM 138 MEQ/L (136-147); UREA NITROGEN (BUN) 49 mg/dL (9-23)
[2018-03-10 06:04] LABS: GLUCOSE 116 mg/dL (70-99)
[2018-03-10 06:40] LABS: ABS NEUTROPHIL COUNT 9.8; ANISOCYTOSIS 2+; EOSINOPHIL ABS CT 0; HYPOCHROMASIA 1+; LYMPHOCYTES 2.6 % (15.0-45.0); MACROCYTES 1+; METAMYELOCYTES 1.7 %; MICROCYTOSIS 1+; MYELOCYTES 2.6 %; OVALOCYTES 1+; SEG.NEUTROPHILS 86.1 % (46.0-76.0)
[2018-03-10 09:03] VITALS: BP 134/81
[2018-03-10] MEDS ORDERED: PRAVASTATIN SOD40 MG PO (10:00)
[2018-03-10] MEDS ORDERED: TAMSULOSIN HCL0.4 MG PO (10:00)
[2018-03-10] MEDS ORDERED: CARVEDILOL3.125 MG PO (10:02)
[2018-03-10 11:51] VITALS: BP 119/87
[2018-03-10] MEDS ORDERED: MEDROL DOSEPAK4 MG PO (14:20)
[2018-03-10] MEDS ORDERED: AUGMENTIN875 MG PO (14:23)
== END 2018-03-10 16:52 | DRG 871 ==
LOC: EME 17:14 → 4EAST 23:36 → EDOF 23:36 → 4WEST 23:36 → ENRESERV 23:41 → 4EAST 03-04 03:28 → ENRESERV 03-05 10:27 → 4WEST 03-05 10:42 → ENRESERV 03-09 05:19 → 4EAST 03-09 07:59 → ENPENDDIS 03-10 → 4EAST 03-10 16:52
PROVIDERS: Emergency Medicine; Hospitalist; Internal Medicine
PROC: 5A1945Z Respiratory Ventilation, 24-96 Consecutive Hours (ICD-10-PCS; principal; 2018-03-05)
PROC: 0BH17EZ Insertion of Endotracheal Airway into Trachea, Via Natural or Artificial Opening (ICD-10-PCS; principal; 2018-03-05)
DX: A41.9 Sepsis, unspecified organism (principal); J96.01 Acute respiratory failure with hypoxia; R74.8 Abnormal levels of other serum enzymes; G20 Parkinson's disease; I24.8 Other forms of acute ischemic heart disease; Z96.651 Presence of right artificial knee joint; I12.9 Hypertensive chronic kidney disease with stage 1 through stage 4 chronic kidney disease, or unspecified chronic kidney disease; J18.9 Pneumonia, unspecified organism; I47.1 Supraventricular tachycardia; M19.90 Unspecified osteoarthritis, unspecified site; K21.9 Gastro-esophageal reflux disease without esophagitis; J98.11 Atelectasis; J44.0 Chronic obstructive pulmonary disease with (acute) lower respiratory infection; I25.5 Ischemic cardiomyopathy; I08.3 Combined rheumatic disorders of mitral, aortic and tricuspid valves; E66.9 Obesity, unspecified; Z68.31 Body mass index [BMI] 31.0-31.9, adult; Z87.891 Personal history of nicotine dependence; Z85.46 Personal history of malignant neoplasm of prostate; N18.3 Chronic kidney disease, stage 3 (moderate); I25.10 Atherosclerotic heart disease of native coronary artery without angina pectoris; J44.1 Chronic obstructive pulmonary disease with (acute) exacerbation; R26.9 Unspecified abnormalities of gait and mobility; E87.5 Hyperkalemia; J96.02 Acute respiratory failure with hypercapnia; N48.89 Other specified disorders of penis; E87.2 Acidosis; E78.5 Hyperlipidemia, unspecified; K44.9 Diaphragmatic hernia without obstruction or gangrene
CPT/HCPCS: 31500; 36600; 70551; 71045; 71046; 71275; 80048; 80048 91; 80053; 80076; 80202; 81003; 82248; 82565; 82607; 82728; 82803; 83605; 83735; 84100; 84478; 84484; 85025; 85025 91; 85027; 87040; 87070; 87205; 87449; 87502; 87641; 92610 GN; 93005; 94002; 94003; 94010; 94640; 94640 76; 94667; 94668; 94760; 94799; 97530 GP; 99202; 99281; 99285; C1753; J0153; J0456; J1644; J1940; J2250; J2543; J2704; J2920; J2930; J3370; J7030; J7040; J7050; J7512; S0028

== ENCOUNTER 2018-06-09 09:56 | Inpatient (IN) | payer OTHER ==
[2018-06-09] VITALS (9 sets, daily range): BP systolic 98–140; BP diastolic 58–87
[~2018-06-09] VITALS: Ht 165.1 cm; Wt 75.4 kg
[~2018-06-09 09:56] MED LIST changes: +AUGMENTIN875 MG PO; +BISAC-EVAC10 MG PR; +CARVEDILOL3.125 MG PO; +IRON325 M1 PO; +MEDROL DOSEPAK4 MG PO; +MELATONIN1 MG PO; +MUCINEX600 MG PO; +PRAVASTATIN SOD40 MG PO; +REQUIP0.5 MG PO; +TAMSULOSIN HCL0.4 MG PO; +TUMS DUAL ACTI1 EACH PO; +ULTRAM50 MG PO
[2018-06-09 10:34] LABS: DEVICE NC; O2 FLOW 3 L/MIN; SITE LR; TOTAL RESP RATE 12 resp/min
[2018-06-09 10:35] LABS: BASE EXCESS 2.8 mEq/L (-3 to +3); BICARBONATE 35.9 mEq/L (22-26); CARBOXY HGB 2.2 % (0-5); METHEMOGLOBIN 0.9 % (0-1.5); O2 SATURATION (CALCULATED) 95.7 % (95-99); PCO2 124 mm Hg (35-45); PO2 121 mm Hg (80-100); pH 7.07 (7.35-7.45)
[2018-06-09 10:36] LABS: COMMENTS - BLOOD GASES A+C
[2018-06-09 11:17] LABS: BASOPHIL (%) 0.4 % (0-1); EOSINOPHIL (%) 0.6 % (0-5); HEMATOCRIT 37.5 % (38.0-50.0); HEMOGLOBIN 10.4 G/DL (12.5-16.6); IMMATURE GRANULOCYTE (%) 2.9 % (0.0-0.7); LYMPHOCYTE (%) 7.3 % (15-42); LYMPHOCYTE COUNT 0.5 K/uL (1.0-2.8); MCH 28.8 PG (29.0-34.0); MCHC 27.7 G/DL (30.0-36.0); MCV 103.9 FL (86-99); MONOCYTE COUNT 0.9 K/uL (0-0.8); NEUTROPHIL (%) 76.8 % (45-76); NEUTROPHIL COUNT 5.6 K/uL (1.8-6.4); NRBC (%) 0.3 /100 WBC (0-0); PLATELET COUNT 164 K/uL (156-360); RBC DIS.WIDTH-CV 18.4 % (11.8-14.6); RBC DIS.WIDTH-SD 70.5 % (39-53); RED BLOOD COUNT 3.61 M/uL (4.00-5.50); WHITE BLOOD COUNT 7.3 K/uL (4.1-10.2)
[2018-06-09 11:20] LABS: ALBUMIN 3.2 g/dL (3.2-4.8)
[2018-06-09 11:21] LABS: CHLORIDE 107 mEq/L (99-109); SODIUM 141 mEq/L (136-147)
[2018-06-09 11:23] LABS: GLUCOSE 114 mg/dL (70-99); TOTAL PROTEIN 5.1 g/dL (6.4-8.3)
[2018-06-09 11:25] LABS: TOTAL BILIRUBIN 0.2 mg/dL (0.0-1.0)
[2018-06-09 11:26] LABS: ALKALINE PHOSPHATASE 95 IU/L (3-129)
[2018-06-09 11:27] LABS: CREATININE 1.3 mg/dL (0.6-1.3); GFR ESTIMATE (CALCULATED) 56 mL/min/ (58.99-99999)
[2018-06-09 11:28] LABS: AST (GOT) 18 IU/L (2-34); UREA NITROGEN (BUN) 46 mg/dL (9-23)
[2018-06-09 11:29] LABS: ALT (GPT) 4 IU/L (3-49)
[2018-06-09 11:35] LABS: TROP-I INTERPRETATION NEGATIVE; TROPONIN-I 0.01 ng/mL (0.0-0.30)
[2018-06-09 11:42] LABS: POTASSIUM 6.5 mEq/L (3.7-5.4)
[2018-06-09 12:13] LABS: BILIRUBIN NEGATIVE; BLOOD NEGATIVE; COLOR YELLOW ((YELLOW)); GLUCOSE (STRIP) NEGATIVE; KETONES 5; LEUKOCYTES NEGATIVE; NITRITE NEGATIVE; PROTEIN (STRIP) NEGATIVE; SPECIFIC GRAVITY 1.017 (1.000-1.030); UROBILINOGEN 0.2 MG/DL (0.2-1.0)
[2018-06-09 12:17] LABS: COMMENTS - BLOOD GASES A+C+; DEVICE VENT; FI02 50 %; MECHANICAL RATE 22 resp/min; MODE AC; PEEP 5 CM/H20; SITE LR; TIDAL VOLUME 470 ML; TOTAL RESP RATE 22 resp/min
[2018-06-09 12:18] LABS: PCO2 46 mm Hg (35-45); PO2 171 mm Hg (80-100); pH 7.41 (7.35-7.45)
[2018-06-09 12:19] LABS: BICARBONATE 29.2 mEq/L (22-26); CARBOXY HGB 1.8 % (0-5); METHEMOGLOBIN 1.1 % (0-1.5)
[2018-06-09 12:25] LABS: CHLORIDE 111 mEq/L (99-109); POTASSIUM 5.9 mEq/L (3.7-5.4); SODIUM 143 mEq/L (136-147)
[2018-06-09 12:27] LABS: GLUCOSE 84 mg/dL (70-99)
[2018-06-09 12:27] LABS: APPEARANCE CLEAR ((CLEAR)); UCUL ADDED? NO
[2018-06-09 12:31] LABS: CREATININE 1.1 mg/dL (0.6-1.3); GFR ESTIMATE (CALCULATED) > 59 mL/min/ (58.99-99999); UREA NITROGEN (BUN) 43 mg/dL (9-23)
[2018-06-09] MEDS ORDERED: DICLOFENAC SOD100 G1 TP (13:28)
[2018-06-09] MEDS ORDERED: MELATONIN10 M1 PO (13:29)
[2018-06-09 17:32] LABS: CHLORIDE 110 MEQ/L (99-109); POTASSIUM 5.5 MEQ/L (3.7-5.4); SODIUM 143 MEQ/L (136-147)
[2018-06-09 17:38] LABS: CREATININE 1.2 MG/DL (0.6-1.3); GFR ESTIMATE (CALCULATED) > 59 mL/min/ (58.99-99999); GLUCOSE 51 mg/dL (70-99); UREA NITROGEN (BUN) 41 mg/dL (9-23)
[2018-06-09 22:45] LABS: CHLORIDE 109 MEQ/L (99-109); POTASSIUM 5.1 MEQ/L (3.7-5.4); SODIUM 145 MEQ/L (136-147)
[2018-06-09 22:50] LABS: CREATININE 1.2 MG/DL (0.6-1.3); GFR ESTIMATE (CALCULATED) > 59 mL/min/ (58.99-99999); UREA NITROGEN (BUN) 40 mg/dL (9-23)
[2018-06-09 22:51] LABS: GLUCOSE 91 mg/dL (70-99)
[2018-06-10] VITALS (24 sets, daily range): BP systolic 116–150; BP diastolic 66–92
[2018-06-10 06:30] LABS: HEMATOCRIT 36.3 % (38.0-50.0); HEMOGLOBIN 10.5 G/DL (12.5-16.6); MCH 28.5 PG (29.0-34.0); MCHC 28.9 G/DL (30.0-36.0); NRBC (%) 0.3 /100 WBC (0-0); RBC DIS.WIDTH-CV 18.9 % (11.8-14.6); RBC DIS.WIDTH-SD 68.8 % (39-53); RED BLOOD COUNT 3.68 M/uL (4.00-5.50); WHITE BLOOD COUNT 6.9 K/uL (4.1-10.2)
[2018-06-10 06:44] LABS: MCV 98.6 FL (86-99)
[2018-06-10 07:18] LABS: PLATELET COUNT 157 K/uL (156-360)
[2018-06-10 08:53] LABS: D-DIMER ELISA < 150.00 ng/mLDDU (<230)
[2018-06-10 08:55] LABS: CHLORIDE 109 mEq/L (99-109); MAGNESIUM 1.9 mg/dL (1.3-2.7); POTASSIUM 5.6 mEq/L (3.7-5.4); SODIUM 144 mEq/L (136-147)
[2018-06-10 09:00] LABS: PHOSPHORUS 2.1 mg/dL (2.5-4.9)
[2018-06-10 09:01] LABS: CREATININE 1.5 mg/dL (0.6-1.3); GFR ESTIMATE (CALCULATED) 47 mL/min/ (58.99-99999); UREA NITROGEN (BUN) 44 mg/dL (9-23)
[2018-06-10 09:03] LABS: GLUCOSE 172 mg/dL (70-99)
[2018-06-11] VITALS (29 sets, daily range): BP systolic 113–148; BP diastolic 58–93
[2018-06-11 06:25] LABS: BASOPHIL (%) 0.1 % (0-1); EOSINOPHIL (%) 0 % (0-5); HEMATOCRIT 32.3 % (38.0-50.0); HEMOGLOBIN 9.8 G/DL (12.5-16.6); LYMPHOCYTE (%) 4.8 % (15-42); LYMPHOCYTE COUNT 0.5 K/uL (1.0-2.8); MCH 28.4 PG (29.0-34.0); MCHC 30.3 G/DL (30.0-36.0); MONOCYTE (%) 7.5 % (3-12); MONOCYTE COUNT 0.7 K/uL (0-0.8); NEUTROPHIL (%) 86.6 % (45-76); NEUTROPHIL COUNT 8.3 K/uL (1.8-6.4); PLATELET COUNT 185 K/uL (156-360); RBC DIS.WIDTH-SD 64.9 % (39-53); RED BLOOD COUNT 3.45 M/uL (4.00-5.50); WHITE BLOOD COUNT 9.5 K/uL (4.1-10.2)
[2018-06-11 06:26] LABS: MCV 93.6 FL (86-99)
[2018-06-11 06:30] LABS: CHLORIDE 107 MEQ/L (99-109); CREATININE 1.6 MG/DL (0.6-1.3); GFR ESTIMATE (CALCULATED) 44 mL/min/ (58.99-99999); GLUCOSE 184 mg/dL (70-99); SODIUM 144 MEQ/L (136-147); UREA NITROGEN (BUN) 52 mg/dL (9-23)
[2018-06-12] VITALS (23 sets, daily range): BP systolic 121–165; BP diastolic 74–101
[2018-06-12 05:47] LABS: BASOPHIL (%) 0.1 % (0-1); EOSINOPHIL (%) 0 % (0-5); HEMATOCRIT 32.5 % (38.0-50.0); HEMOGLOBIN 9.9 G/DL (12.5-16.6); IMMATURE GRANULOCYTE (%) 0.9 % (0.0-0.7); LYMPHOCYTE (%) 3.8 % (15-42); LYMPHOCYTE COUNT 0.4 K/uL (1.0-2.8); MCH 28.6 PG (29.0-34.0); MCHC 30.5 G/DL (30.0-36.0); MCV 93.9 FL (86-99); MONOCYTE (%) 4.3 % (3-12); MONOCYTE COUNT 0.5 K/uL (0-0.8); NEUTROPHIL (%) 90.9 % (45-76); NEUTROPHIL COUNT 10.1 K/uL (1.8-6.4); PLATELET COUNT 168 K/uL (156-360); RBC DIS.WIDTH-CV 19.1 % (11.8-14.6); RBC DIS.WIDTH-SD 65.8 % (39-53); RED BLOOD COUNT 3.46 M/uL (4.00-5.50); WHITE BLOOD COUNT 11.1 K/uL (4.1-10.2)
[2018-06-12 06:12] LABS: CHLORIDE 106 MEQ/L (99-109); CREATININE 1.6 MG/DL (0.6-1.3); GFR ESTIMATE (CALCULATED) 44 mL/min/ (58.99-99999); GLUCOSE 167 mg/dL (70-99); POTASSIUM 5.7 MEQ/L (3.7-5.4); SODIUM 142 MEQ/L (136-147); UREA NITROGEN (BUN) 57 mg/dL (9-23)
[2018-06-12 15:51] LABS: CHLORIDE 107 MEQ/L (99-109); CREATININE 1.5 MG/DL (0.6-1.3); GFR ESTIMATE (CALCULATED) 47 mL/min/ (58.99-99999); GLUCOSE 125 mg/dL (70-99); POTASSIUM 5.7 MEQ/L (3.7-5.4); SODIUM 142 MEQ/L (136-147); UREA NITROGEN (BUN) 58 mg/dL (9-23)
[2018-06-13] VITALS (13 sets, daily range): BP systolic 140–162; BP diastolic 78–96
[2018-06-13 06:25] LABS: CHLORIDE 107 MEQ/L (99-109); CREATININE 1.5 MG/DL (0.6-1.3); GFR ESTIMATE (CALCULATED) 47 mL/min/ (58.99-99999); POTASSIUM 5.9 MEQ/L (3.7-5.4); SODIUM 145 MEQ/L (136-147); UREA NITROGEN (BUN) 62 mg/dL (9-23)
[2018-06-13 06:30] LABS: GLUCOSE 82 mg/dL (70-99)
[2018-06-13 06:44] LABS: BASOPHIL (%) 0.1 % (0-1); EOSINOPHIL (%) 0 % (0-5); HEMATOCRIT 33.7 % (38.0-50.0); HEMOGLOBIN 10.2 G/DL (12.5-16.6); IMMATURE GRANULOCYTE (%) 0.7 % (0.0-0.7); LYMPHOCYTE (%) 6.8 % (15-42); LYMPHOCYTE COUNT 0.7 K/uL (1.0-2.8); MCHC 30.3 G/DL (30.0-36.0); MCV 95.7 FL (86-99); MONOCYTE (%) 12.2 % (3-12); MONOCYTE COUNT 1.3 K/uL (0-0.8); NEUTROPHIL (%) 80.2 % (45-76); NEUTROPHIL COUNT 8.3 K/uL (1.8-6.4); PLATELET COUNT 159 K/uL (156-360); RBC DIS.WIDTH-CV 18.6 % (11.8-14.6); RBC DIS.WIDTH-SD 65.4 % (39-53); RED BLOOD COUNT 3.52 M/uL (4.00-5.50); WHITE BLOOD COUNT 10.3 K/uL (4.1-10.2)
[2018-06-14 06:08] LABS: BASOPHIL (%) 0.2 % (0-1); EOSINOPHIL (%) 0.5 % (0-5); EOSINOPHIL COUNT 0.1 K/uL (0-0.3); HEMATOCRIT 34.9 % (38.0-50.0); HEMOGLOBIN 10.5 G/DL (12.5-16.6); IMMATURE GRANULOCYTE (%) 1.2 % (0.0-0.7); LYMPHOCYTE (%) 8.8 % (15-42); LYMPHOCYTE COUNT 0.9 K/uL (1.0-2.8); MCH 29.1 PG (29.0-34.0); MCHC 30.1 G/DL (30.0-36.0); MCV 96.7 FL (86-99); MONOCYTE (%) 15.9 % (3-12); MONOCYTE COUNT 1.6 K/uL (0-0.8); NEUTROPHIL (%) 73.4 % (45-76); NEUTROPHIL COUNT 7.2 K/uL (1.8-6.4); PLATELET COUNT 175 K/uL (156-360); RBC DIS.WIDTH-CV 18.4 % (11.8-14.6); RBC DIS.WIDTH-SD 65.1 % (39-53); RED BLOOD COUNT 3.61 M/uL (4.00-5.50); WHITE BLOOD COUNT 9.9 K/uL (4.1-10.2)
[2018-06-14 06:41] LABS: CHLORIDE 106 MEQ/L (99-109); CREATININE 1.5 MG/DL (0.6-1.3); GFR ESTIMATE (CALCULATED) 47 mL/min/ (58.99-99999); GLUCOSE 81 mg/dL (70-99); MAGNESIUM 2.4 mg/dl (1.3-2.7); POTASSIUM 5.6 MEQ/L (3.7-5.4); SODIUM 145 MEQ/L (136-147); UREA NITROGEN (BUN) 68 mg/dL (9-23)
[2018-06-14 07:10] VITALS: BP 169/87
[2018-06-14 15:20] VITALS: BP 169/79
[2018-06-14 23:03] VITALS: BP 180/85
[2018-06-15 03:43] VITALS: BP 119/89
[2018-06-15 05:37] LABS: BASOPHIL (%) 0.2 % (0-1); EOSINOPHIL (%) 0.7 % (0-5); EOSINOPHIL COUNT 0.1 K/uL (0-0.3); HEMATOCRIT 36.3 % (38.0-50.0); HEMOGLOBIN 10.9 G/DL (12.5-16.6); IMMATURE GRANULOCYTE (%) 1.4 % (0.0-0.7); LYMPHOCYTE (%) 9.6 % (15-42); LYMPHOCYTE COUNT 1.1 K/uL (1.0-2.8); MCH 29.2 PG (29.0-34.0); MCV 97.3 FL (86-99); MONOCYTE (%) 15.1 % (3-12); MONOCYTE COUNT 1.7 K/uL (0-0.8); NEUTROPHIL COUNT 8.1 K/uL (1.8-6.4); PLATELET COUNT 180 K/uL (156-360); RBC DIS.WIDTH-CV 18.2 % (11.8-14.6); RBC DIS.WIDTH-SD 64.7 % (39-53); RED BLOOD COUNT 3.73 M/uL (4.00-5.50); WHITE BLOOD COUNT 11.1 K/uL (4.1-10.2)
[2018-06-15 05:50] LABS: CHLORIDE 109 MEQ/L (99-109); CREATININE 1.4 MG/DL (0.6-1.3); GFR ESTIMATE (CALCULATED) 51 mL/min/ (58.99-99999); GLUCOSE 87 mg/dL (70-99); POTASSIUM 5.6 MEQ/L (3.7-5.4); SODIUM 145 MEQ/L (136-147); UREA NITROGEN (BUN) 58 mg/dL (9-23)
[2018-06-15 08:00] VITALS: BP 176/80
[2018-06-15 14:40] VITALS: BP 176/105
[2018-06-15 15:12] VITALS: BP 154/82
[2018-06-15 15:28] VITALS: BP 159/87
[2018-06-15 23:23] VITALS: BP 151/81
[2018-06-16 06:00] LABS: BASOPHIL (%) 0.1 % (0-1); EOSINOPHIL (%) 0.9 % (0-5); EOSINOPHIL COUNT 0.1 K/uL (0-0.3); HEMATOCRIT 33.8 % (38.0-50.0); HEMOGLOBIN 10.1 G/DL (12.5-16.6); IMMATURE GRANULOCYTE (%) 1.3 % (0.0-0.7); LYMPHOCYTE (%) 9.8 % (15-42); MCHC 29.9 G/DL (30.0-36.0); MCV 97.1 FL (86-99); MONOCYTE COUNT 1.5 K/uL (0-0.8); NEUTROPHIL (%) 73.9 % (45-76); NEUTROPHIL COUNT 7.8 K/uL (1.8-6.4); PLATELET COUNT 210 K/uL (156-360); RBC DIS.WIDTH-CV 18.3 % (11.8-14.6); RED BLOOD COUNT 3.48 M/uL (4.00-5.50); WHITE BLOOD COUNT 10.6 K/uL (4.1-10.2)
[2018-06-16 06:16] LABS: CHLORIDE 110 MEQ/L (99-109); CREATININE 1.6 MG/DL (0.6-1.3); GFR ESTIMATE (CALCULATED) 44 mL/min/ (58.99-99999); GLUCOSE 83 mg/dL (70-99); POTASSIUM 5.7 MEQ/L (3.7-5.4); SODIUM 149 MEQ/L (136-147); UREA NITROGEN (BUN) 48 mg/dL (9-23)
[2018-06-16 08:05] VITALS: BP 128/60
[2018-06-16] MEDS ORDERED: CEFTIN500 MG PO (12:45)
[2018-06-16] MEDS ORDERED: COREG3.125 M1 PO (12:46)
[2018-06-16] MEDS ORDERED: APRESOLINE25 MG PO (12:46)
[2018-06-16] MEDS ORDERED: PREDNISONE10 MG PO (12:47)
== END 2018-06-16 16:03 | DRG 871 ==
LOC: EME 09:56 → 4WEST 13:24 → 5EAST 13:24 → EDOF 13:24 → ENRESERV 13:25 → 4WEST 15:39 → ENRESERV 06-13 11:02 → 5EAST 06-13 13:39
PROVIDERS: Emergency Medicine; Family Medicine; Internal Medicine; Internal Medicine Critical Care Medicine; Specialist
PROC: 5A1945Z Respiratory Ventilation, 24-96 Consecutive Hours (ICD-10-PCS; principal; 2018-06-09)
PROC: 0BH17EZ Insertion of Endotracheal Airway into Trachea, Via Natural or Artificial Opening (ICD-10-PCS; 2018-06-09)
DX: A40.0 Sepsis due to streptococcus, group A (principal); J96.02 Acute respiratory failure with hypercapnia; J69.0 Pneumonitis due to inhalation of food and vomit; E87.2 Acidosis; J44.1 Chronic obstructive pulmonary disease with (acute) exacerbation; R68.0 Hypothermia, not associated with low environmental temperature; E87.5 Hyperkalemia; R13.10 Dysphagia, unspecified; R47.1 Dysarthria and anarthria; G20 Parkinson's disease; K21.9 Gastro-esophageal reflux disease without esophagitis; G25.81 Restless legs syndrome; I12.9 Hypertensive chronic kidney disease with stage 1 through stage 4 chronic kidney disease, or unspecified chronic kidney disease; N18.3 Chronic kidney disease, stage 3 (moderate); E78.5 Hyperlipidemia, unspecified; D53.9 Nutritional anemia, unspecified; I25.10 Atherosclerotic heart disease of native coronary artery without angina pectoris; I27.20 Pulmonary hypertension, unspecified; I25.5 Ischemic cardiomyopathy; K44.9 Diaphragmatic hernia without obstruction or gangrene; I34.0 Nonrheumatic mitral (valve) insufficiency; E66.9 Obesity, unspecified; Z96.651 Presence of right artificial knee joint; Z79.82 Long term (current) use of aspirin; Z88.5 Allergy status to narcotic agent; Z88.6 Allergy status to analgesic agent; Z85.46 Personal history of malignant neoplasm of prostate
CPT/HCPCS: 36600; 71045; 80048; 80048 91; 80053; 81003; 82948; 83605; 83735; 83880; 84100; 84484; 85025; 85027; 85379; 87040; 87070; 87077; 87186; 87205; 87449; 87641; 87801; 92526 GN; 92610 GN; 93005; 93970; 94002; 94003; 94799; 99281; 99285; C1753; J0330; J0696; J1644; J1940; J2250; J2543; J2920; J3010; J3370; J7050; J7120; J7512

== ENCOUNTER 2018-06-26 10:48 | Inpatient (IN) | payer OTHER ==
[~2018-06-26] VITALS: Ht 160 cm; Wt 77.9 kg
[~2018-06-26 10:48] MED LIST changes: +CEFTIN500 MG PO; +COREG3.125 M1 PO; +DICLOFENAC SOD100 G1 TP; +MELATONIN5 M1 PO
[2018-06-26 11:51] LABS: BASOPHIL (%) 0.1 % (0-1); EOSINOPHIL (%) 0.7 % (0-5); EOSINOPHIL COUNT 0.1 K/uL (0-0.3); HEMOGLOBIN 9.6 G/DL (12.5-16.6); IMMATURE GRANULOCYTE (%) 0.4 % (0.0-0.7); LYMPHOCYTE (%) 9.6 % (15-42); LYMPHOCYTE COUNT 0.7 K/uL (1.0-2.8); MCH 29.4 PG (29.0-34.0); MCHC 28.2 G/DL (30.0-36.0); MCV 104.3 FL (86-99); MONOCYTE (%) 11.2 % (3-12); MONOCYTE COUNT 0.8 K/uL (0-0.8); NEUTROPHIL COUNT 5.8 K/uL (1.8-6.4); PLATELET COUNT 240 K/uL (156-360); RBC DIS.WIDTH-CV 17.9 % (11.8-14.6); RBC DIS.WIDTH-SD 68.7 % (39-53); RED BLOOD COUNT 3.26 M/uL (4.00-5.50); WHITE BLOOD COUNT 7.5 K/uL (4.1-10.2)
[2018-06-26 11:55] LABS: INTER. NORMALIZED RATIO 0.9
[2018-06-26 11:58] LABS: PTT 32.7 SEC (25-37)
[2018-06-26 12:01] LABS: AMYLASE 69 IU/L (1-118); CHLORIDE 100 mEq/L (99-109); POTASSIUM 5.8 mEq/L (3.7-5.4)
[2018-06-26 12:02] LABS: SODIUM 140 mEq/L (136-147)
[2018-06-26 12:03] LABS: GLUCOSE 79 mg/dL (70-99)
[2018-06-26 12:06] LABS: SERUM ETHYL ALCOHOL < 10 mg/dL
[2018-06-26 12:07] LABS: GFR ESTIMATE (CALCULATED) > 59 mL/min/ (58.99-99999)
[2018-06-26 12:08] LABS: UREA NITROGEN (BUN) 55 mg/dL (9-23)
[2018-06-26 12:10] LABS: LIPASE 15 U/L (1.0-51.0)
[2018-06-26 12:11] LABS: TROP-I INTERPRETATION NEGATIVE; TROPONIN-I 0.03 ng/mL (0.0-0.30)
[2018-06-26 15:13] LABS: BILIRUBIN NEGATIVE; BLOOD NEGATIVE; COLOR YELLOW ((YELLOW)); GLUCOSE (STRIP) NEGATIVE; KETONES NEGATIVE; LEUKOCYTES LARGE; NITRITE NEGATIVE; PROTEIN (STRIP) NEGATIVE; SPECIFIC GRAVITY 1.016 (1.000-1.030); UROBILINOGEN 0.2 MG/DL (0.2-1.0)
[2018-06-26 15:14] LABS: APPEARANCE SL.HAZY ((CLEAR))
[2018-06-26 15:20] LABS: EPITHELIAL CELLS 1+ /HPF; RED BLOOD CELLS 0-5 /HPF (0-5); WHITE BLOOD CELLS 15-20 /HPF (0-5)
[2018-06-26 15:21] LABS: BACTERIA RARE /HPF; MUCUS TRACE /LPF; UCUL ADDED? YES
[2018-06-26 15:24] LABS: AMPHETAMINE NEGATIVE (500 ng/mL); BENZODIAZEPINES NEGATIVE (150 ng/mL); COCAINE NEGATIVE (150 ng/mL); METHADONE NEGATIVE (200 ng/mL); METHAMPHETAMINE NEGATIVE (500 ng/mL); OPIATES (MORPHINE) NEGATIVE (100 ng/mL); PHENCYCLIDINE NEGATIVE (25 ng/mL); THC CANNABINOIDS NEGATIVE (50 ng/mL); TRICYCLIC ANTIDEPRESSANTS NEGATIVE (300 ng/mL)
[2018-06-26 15:25] LABS: BARBITURATES NEGATIVE (200 ng/mL); BUPRENORPHINE NEGATIVE (10 ng/mL); OXYCODONE NEGATIVE (100 ng/mL); PROPOXYPHENE NEGATIVE (300 ng/mL)
[2018-06-26 16:40] LABS: COMMENTS - BLOOD GASES A+C+; DEVICE NC; O2 FLOW 3 L/MIN; SITE RR
[2018-06-26 16:42] LABS: PCO2 87 mm Hg (35-45); PO2 107 mm Hg (80-100); pH 7.29 (7.35-7.45)
[2018-06-26 16:43] LABS: BASE EXCESS 12.7 mEq/L (-3 to +3); BICARBONATE 41.8 mEq/L (22-26); METHEMOGLOBIN 1.2 % (0-1.5); O2 SATURATION (CALCULATED) 95.8 % (95-99)
[2018-06-26] MEDS ORDERED: ALBUTEROL2.5 MG/3 M IH (16:45)
[2018-06-26] MEDS ORDERED: PREDNISONE5 MG PO (16:47)
[2018-06-26] MEDS ORDERED: ZOLOFT25 MG PO (16:49)
[2018-06-26] MEDS ORDERED: CARVEDILOL3.125 MG PO (16:50)
[2018-06-26] MEDS ORDERED: APRESOLINE25 MG PO (16:53)
[2018-06-26] MEDS ORDERED: CARBIDOPA/LEVO1 EACH PO (16:53)
[2018-06-26] MEDS ORDERED: DULCOLAX10 MG PR (16:56)
[2018-06-26] MEDS ORDERED: MILK OF MAGN PO (16:57)
[2018-06-26] MEDS ORDERED: MIRALAX17 GM PO (16:58)
[2018-06-26 18:13] LABS: DEVICE NC; O2 FLOW 1 L/MIN; SITE RR; pH 7.33 (7.35-7.45)
[2018-06-26 18:14] LABS: BASE EXCESS 9.5 mEq/L (-3 to +3); BICARBONATE 37.4 mEq/L (22-26); CARBOXY HGB 1.9 % (0-5); O2 SATURATION (CALCULATED) 89.2 % (95-99); PCO2 71 mm Hg (35-45); PO2 53 mm Hg (80-100)
[2018-06-26 19:55] VITALS: BP 174/93
[2018-06-26 20:01] VITALS: BP 174/93
[2018-06-26 21:01] VITALS: BP 179/95
[2018-06-26 22:01] VITALS: BP 177/96
[2018-06-26 23:01] VITALS: BP 159/98
[2018-06-27] VITALS (17 sets, daily range): BP systolic 129–162; BP diastolic 70–109
[2018-06-27 12:21] LABS: COMMENTS - BLOOD GASES A+C+; SITE LR
[2018-06-27 12:23] LABS: DEVICE NC; O2 FLOW 2 L/MIN
[2018-06-27 12:24] LABS: BASE EXCESS 6.8 mEq/L (-3 to +3); BICARBONATE 31.9 mEq/L (22-26); CARBOXY HGB 1.4 % (0-5); METHEMOGLOBIN 0.8 % (0-1.5); PCO2 47 mm Hg (35-45); PO2 67 mm Hg (80-100); TOTAL RESP RATE 36 resp/min; pH 7.44 (7.35-7.45)
[2018-06-28] VITALS (7 sets, daily range): BP systolic 125–164; BP diastolic 62–83
[2018-06-28 07:18] LABS: CHLORIDE 103 MEQ/L (99-109); POTASSIUM 5.7 MEQ/L (3.7-5.4); SODIUM 143 MEQ/L (136-147)
[2018-06-28 07:23] LABS: CREATININE 1.2 MG/DL (0.6-1.3); GFR ESTIMATE (CALCULATED) > 59 mL/min/ (58.99-99999); UREA NITROGEN (BUN) 55 mg/dL (9-23)
[2018-06-28 07:43] LABS: GLUCOSE 114 mg/dL (70-99)
[2018-06-28 14:24] LABS: CHLORIDE 102 MEQ/L (99-109); CREATININE 1.4 MG/DL (0.6-1.3); GFR ESTIMATE (CALCULATED) 51 mL/min/ (58.99-99999); SODIUM 140 MEQ/L (136-147); UREA NITROGEN (BUN) 60 mg/dL (9-23)
[2018-06-28 14:28] LABS: GLUCOSE 265 mg/dL (70-99)
[2018-06-29] VITALS (12 sets, daily range): BP systolic 136–204; BP diastolic 68–106
[2018-06-29 06:18] LABS: HEMATOCRIT 33.4 % (38.0-50.0); MCH 29.1 PG (29.0-34.0); MCHC 29.9 G/DL (30.0-36.0); PLATELET COUNT 256 K/uL (156-360); RBC DIS.WIDTH-CV 18.3 % (11.8-14.6); RBC DIS.WIDTH-SD 64.7 % (39-53); RED BLOOD COUNT 3.44 M/uL (4.00-5.50); WHITE BLOOD COUNT 7.2 K/uL (4.1-10.2)
[2018-06-29 06:23] LABS: CHLORIDE 102 MEQ/L (99-109); CREATININE 1.3 MG/DL (0.6-1.3); GFR ESTIMATE (CALCULATED) 56 mL/min/ (58.99-99999); POTASSIUM 4.5 MEQ/L (3.7-5.4); SODIUM 145 MEQ/L (136-147); UREA NITROGEN (BUN) 60 mg/dL (9-23)
[2018-06-29 06:25] LABS: GLUCOSE 128 mg/dL (70-99)
[2018-06-29 06:28] LABS: MCV 97.1 FL (86-99)
[2018-06-29 10:41] LABS: COMMENTS - BLOOD GASES A+C+; O2 FLOW 2 L/MIN; SITE RR
[2018-06-29 10:42] LABS: DEVICE NC; PCO2 74 mm Hg (35-45); PO2 102 mm Hg (80-100); pH 7.33 (7.35-7.45)
[2018-06-29 10:43] LABS: BASE EXCESS 10 mEq/L (-3 to +3); BICARBONATE 39 mEq/L (22-26)
[2018-06-29 19:36] LABS: COMMENTS - BLOOD GASES C+; DEVICE MASK VENT; FI02 28 %; MODE SIMV; SITE LR
[2018-06-29 19:37] LABS: MECHANICAL RATE 15 resp/min; PCO2 62 mm Hg (35-45); PEEP 5 CM/H20; PO2 88 mm Hg (80-100); PRES. SUPPORT 10 CM/H2O; TIDAL VOLUME 400 ML; TOTAL RESP RATE 23 resp/min; pH 7.39 (7.35-7.45)
[2018-06-29 19:38] LABS: BASE EXCESS 10.8 mEq/L (-3 to +3); BICARBONATE 37.5 mEq/L (22-26); CARBOXY HGB 1.2 % (0-5); METHEMOGLOBIN 0.7 % (0-1.5); O2 SATURATION (CALCULATED) 97.7 % (95-99)
[2018-06-30] VITALS (21 sets, daily range): BP systolic 138–184; BP diastolic 67–110
[2018-07-01] VITALS (18 sets, daily range): BP systolic 127–174; BP diastolic 59–98
[2018-07-01 10:47] LABS: CHLORIDE 110 MEQ/L (99-109); POTASSIUM 3.8 MEQ/L (3.7-5.4); SODIUM 147 MEQ/L (136-147)
[2018-07-01 10:52] LABS: CREATININE 1.2 MG/DL (0.6-1.3); GFR ESTIMATE (CALCULATED) > 59 mL/min/ (58.99-99999); GLUCOSE 186 mg/dL (70-99); UREA NITROGEN (BUN) 47 mg/dL (9-23)
[2018-07-02] VITALS (10 sets, daily range): BP systolic 124–191; BP diastolic 63–105
[2018-07-03] VITALS (7 sets, daily range): BP systolic 116–163; BP diastolic 54–78
[2018-07-03 06:02] LABS: MCH 28.8 PG (29.0-34.0); MCHC 28.1 G/DL (30.0-36.0); RBC DIS.WIDTH-CV 18.4 % (11.8-14.6); RBC DIS.WIDTH-SD 70.2 % (39-53); RED BLOOD COUNT 3.12 M/uL (4.00-5.50); WHITE BLOOD COUNT 8.1 K/uL (4.1-10.2)
[2018-07-03 06:04] LABS: MCV 102.6 FL (86-99)
[2018-07-03 06:13] LABS: CHLORIDE 111 MEQ/L (99-109); CREATININE 1.2 MG/DL (0.6-1.3); GFR ESTIMATE (CALCULATED) > 59 mL/min/ (58.99-99999); GLUCOSE 123 mg/dL (70-99); MAGNESIUM 2.2 mg/dl (1.3-2.7); SODIUM 147 MEQ/L (136-147); UREA NITROGEN (BUN) 52 mg/dL (9-23)
[2018-07-03 06:16] LABS: POTASSIUM 5.4 MEQ/L (3.7-5.4)
[2018-07-03 06:52] LABS: PLAT.SUFFICIENCY DECREASED
[2018-07-03 07:10] LABS: PLATELET COUNT 156 K/uL (156-360)
[2018-07-04 02:55] VITALS: BP 136/68
[2018-07-04 05:31] LABS: HEMATOCRIT 30.5 % (38.0-50.0); HEMOGLOBIN 8.7 G/DL (12.5-16.6); MCH 29.5 PG (29.0-34.0); MCHC 28.5 G/DL (30.0-36.0); MCV 103.4 FL (86-99); PLATELET COUNT 156 K/uL (156-360); RBC DIS.WIDTH-CV 18.2 % (11.8-14.6); RBC DIS.WIDTH-SD 68.8 % (39-53); RED BLOOD COUNT 2.95 M/uL (4.00-5.50); WHITE BLOOD COUNT 12.7 K/uL (4.1-10.2)
[2018-07-04 05:57] LABS: CHLORIDE 111 MEQ/L (99-109); CREATININE 1.3 MG/DL (0.6-1.3); GFR ESTIMATE (CALCULATED) 56 mL/min/ (58.99-99999); GLUCOSE 104 mg/dL (70-99); MAGNESIUM 2.4 mg/dl (1.3-2.7); POTASSIUM 5.7 MEQ/L (3.7-5.4); SODIUM 149 MEQ/L (136-147); UREA NITROGEN (BUN) 59 mg/dL (9-23)
[2018-07-04 08:30] VITALS: BP 138/67
[2018-07-04 11:57] VITALS: BP 122/48
[2018-07-04 15:19] LABS: HEMOGLOBIN 9.3 G/DL (12.5-16.6); MCH 29.2 PG (29.0-34.0); MCHC 28.2 G/DL (30.0-36.0); MCV 103.8 FL (86-99); PLATELET COUNT 153 K/uL (156-360); RBC DIS.WIDTH-CV 18.4 % (11.8-14.6); RBC DIS.WIDTH-SD 70.8 % (39-53); RED BLOOD COUNT 3.18 M/uL (4.00-5.50); WHITE BLOOD COUNT 14.9 K/uL (4.1-10.2)
[2018-07-04 15:32] LABS: CHLORIDE 114 mEq/L (99-109); POTASSIUM 5.3 mEq/L (3.7-5.4); SODIUM 148 mEq/L (136-147)
[2018-07-04 15:33] LABS: MAGNESIUM 2.6 mg/dL (1.3-2.7)
[2018-07-04 15:37] LABS: CREATININE 1.3 mg/dL (0.6-1.3); GFR ESTIMATE (CALCULATED) 56 mL/min/ (58.99-99999)
[2018-07-04 15:38] LABS: UREA NITROGEN (BUN) 75 mg/dL (9-23)
[2018-07-04 15:41] LABS: GLUCOSE 164 mg/dL (70-99)
[2018-07-04 16:22] VITALS: BP 125/69
[2018-07-04 19:41] VITALS: BP 108/58
[2018-07-04 23:13] VITALS: BP 141/56
[2018-07-05 03:42] VITALS: BP 124/86
[2018-07-05 07:50] VITALS: BP 129/86
[2018-07-05 11:32] VITALS: BP 143/68
[2018-07-05 12:01] LABS: APPEARANCE CLEAR ((CLEAR)); BILIRUBIN NEGATIVE; BLOOD LARGE; COLOR YELLOW ((YELLOW)); GLUCOSE (STRIP) NEGATIVE; KETONES NEGATIVE; LEUKOCYTES NEGATIVE; NITRITE NEGATIVE; PROTEIN (STRIP) 30; SPECIFIC GRAVITY 1.017 (1.000-1.030); UROBILINOGEN 0.2 MG/DL (0.2-1.0)
[2018-07-05 12:09] LABS: BACTERIA NONE SEEN /HPF; EPITHELIAL CELLS NONE SEEN /HPF; MUCUS TRACE /LPF; RED BLOOD CELLS TNTC /HPF (0-5); UCUL ADDED? YES
[2018-07-05 15:01] VITALS: BP 110/76
[2018-07-05 16:48] LABS: TROP-I INTERPRETATION NEGATIVE; TROPONIN-I 0.03 ng/mL (0.0-0.30)
[2018-07-05 19:31] VITALS: BP 96/78
[2018-07-06] VITALS: BP 142/88
[2018-07-06 04:44] VITALS: BP 164/80
[2018-07-06 06:02] LABS: HEMATOCRIT 30.8 % (38.0-50.0); HEMOGLOBIN 8.7 G/DL (12.5-16.6); MCH 29.2 PG (29.0-34.0); MCHC 28.2 G/DL (30.0-36.0); MCV 103.4 FL (86-99); PLATELET COUNT 150 K/uL (156-360); RBC DIS.WIDTH-CV 18.3 % (11.8-14.6); RBC DIS.WIDTH-SD 70.7 % (39-53); RED BLOOD COUNT 2.98 M/uL (4.00-5.50); WHITE BLOOD COUNT 10.7 K/uL (4.1-10.2)
[2018-07-06 06:22] LABS: CHLORIDE 114 MEQ/L (99-109); CREATININE 1.3 MG/DL (0.6-1.3); GFR ESTIMATE (CALCULATED) 56 mL/min/ (58.99-99999); GLUCOSE 123 mg/dL (70-99); MAGNESIUM 2.5 mg/dl (1.3-2.7); POTASSIUM 5.8 MEQ/L (3.7-5.4); SODIUM 151 MEQ/L (136-147); UREA NITROGEN (BUN) 58 mg/dL (9-23)
[2018-07-06 06:57] VITALS: BP 146/72
[2018-07-06 12:35] VITALS: BP 141/76
[2018-07-06 15:23] VITALS: BP 136/82
[2018-07-06 16:49] LABS: CHLORIDE 115 MEQ/L (99-109); CREATININE 1.2 MG/DL (0.6-1.3); GFR ESTIMATE (CALCULATED) > 59 mL/min/ (58.99-99999); POTASSIUM 5.6 MEQ/L (3.7-5.4); SODIUM 151 MEQ/L (136-147); UREA NITROGEN (BUN) 56 mg/dL (9-23)
[2018-07-06 16:53] LABS: GLUCOSE 219 mg/dL (70-99)
[2018-07-06 19:13] VITALS: BP 112/54
[2018-07-07] VITALS: BP 150/65
[2018-07-07 03:44] VITALS: BP 157/90
[2018-07-07 05:47] LABS: HEMATOCRIT 31.3 % (38.0-50.0); HEMOGLOBIN 8.8 G/DL (12.5-16.6); MCHC 28.1 G/DL (30.0-36.0); MCV 103.3 FL (86-99); PLATELET COUNT 146 K/uL (156-360); RBC DIS.WIDTH-CV 18.4 % (11.8-14.6); RED BLOOD COUNT 3.03 M/uL (4.00-5.50); WHITE BLOOD COUNT 9.9 K/uL (4.1-10.2)
[2018-07-07 06:22] LABS: CHLORIDE 109 MEQ/L (99-109); CREATININE 1.1 MG/DL (0.6-1.3); GFR ESTIMATE (CALCULATED) > 59 mL/min/ (58.99-99999); GLUCOSE 150 mg/dL (70-99); MAGNESIUM 2.4 mg/dl (1.3-2.7); SODIUM 144 MEQ/L (136-147); UREA NITROGEN (BUN) 52 mg/dL (9-23)
[2018-07-07 06:43] VITALS: BP 141/62
[2018-07-07 10:57] VITALS: BP 143/87
[2018-07-07] MEDS ORDERED: PREDNISONE10 MG PO (15:24)
[2018-07-07] MEDS ORDERED: ATORVASTATIN CA40 MG PO (15:26)
[2018-07-07 16:22] VITALS: BP 155/73
== END 2018-07-07 19:10 | DRG 189 ==
LOC: EME 10:48 → 4WEST 16:20 → EDOF 16:20 → 5SOUTH 16:20 → 4EAST 16:20 → ENRESERV 16:24 → CANRESERV 16:53 → ENRESERV 18:25 → 4WEST 19:45 → ENRESERV 06-27 15:54 → 4EAST 06-27 20:37 → 5SOUTH 06-28 17:56 → ENRESERV 06-29 16:20 → 4WEST 06-29 17:26 → ENRESERV 07-01 13:26 → CANRESERV 07-01 13:26 → ENRESERV 07-02 19:36 → 4EAST 07-02 20:21 → CANRESERV 07-07 15:49 → ENRESERV 07-07 15:49 → 4EAST 07-07 19:10
PROVIDERS: Emergency Medicine; Hospitalist; Internal Medicine; Internal Medicine Critical Care Medicine
PROC: 5A09357 Assistance with Respiratory Ventilation, Less than 24 Consecutive Hours, Continuous Positive Airway Pressure (ICD-10-PCS; principal; 2018-07-01)
DX: J96.22 Acute and chronic respiratory failure with hypercapnia (principal); G93.41 Metabolic encephalopathy; J44.1 Chronic obstructive pulmonary disease with (acute) exacerbation; J96.21 Acute and chronic respiratory failure with hypoxia; J98.11 Atelectasis; G20 Parkinson's disease; N18.1 Chronic kidney disease, stage 1; K21.9 Gastro-esophageal reflux disease without esophagitis; E87.5 Hyperkalemia; Z99.81 Dependence on supplemental oxygen; M19.90 Unspecified osteoarthritis, unspecified site; E87.0 Hyperosmolality and hypernatremia; I27.20 Pulmonary hypertension, unspecified; I42.9 Cardiomyopathy, unspecified; I08.1 Rheumatic disorders of both mitral and tricuspid valves; I12.9 Hypertensive chronic kidney disease with stage 1 through stage 4 chronic kidney disease, or unspecified chronic kidney disease; R13.10 Dysphagia, unspecified; E78.5 Hyperlipidemia, unspecified; Z96.651 Presence of right artificial knee joint; N25.89 Other disorders resulting from impaired renal tubular function; R79.89 Other specified abnormal findings of blood chemistry; Z85.46 Personal history of malignant neoplasm of prostate; Z66 Do not resuscitate
CPT/HCPCS: 36600; 70450; 70496; 70498; 70551; 71045; 74230; 80047; 80048; 80048 91; 81003; 82140; 82150; 82330; 82948; 83605; 83690; 83735; 83930; 83935; 84132 91; 84145 90; 84300; 84484; 85025; 85027; 85610; 85730; 86850; 86900; 86901; 87040; 87086; 87641; 92526 GN; 92610 GN; 92611 GN; 93005; 94002; 94003; 94640; 94660; 94760; 94799; 95819; 97530 GO; 97530 GP; 99281; 99285; G0480; J0360; J0692; J1650; J2543; J2920; J2930; J3010; J3370; J7030; J7040; J7050; J7070; J7120